=== PATIENT | female | born 1975 | race Caucasian/White ===

== ENCOUNTER 2018-01-19 07:21 | Outpatient (CLI) | payer BC ==
--- NOTE | 2018-01-19 14:14 | NM ---
NUCLEAR MEDICINE GASTRIC EMPTYING SCAN: Date: 01/19/18 HISTORY: 42-year-old female with nausea and vomiting, unspecified. TECHNIQUE: 2.1 mCi of technetium-99m sulfur colloid served in egg meal. Anterior scintigraphic images of the abdomen obtained immediately, at 30 minutes, at 1 hour, at 2 oscar rs, at 3 hours, and at 4 hours. FINDINGS: The percentage emptying is: 17% at 30 minutes 15% at 1 hour 69% at 2 hours 90% at 3 hours 98% at 4 hours Halftime of emptying is 97 minutes. IMPRESSION: Although the half-time of gastric emptying is slightly delayed, the rest of the values are within nor mal limits. POS: GABE
== END 2018-01-19 07:22 | disposition home or self-care (01) ==
LOC: NM 07:21
PROVIDERS: ATTEND Internal Medicine
DX: R11.2 Nausea with vomiting, unspecified (principal)
CPT/HCPCS: 78264; A9541

== ENCOUNTER 2018-12-14 08:04 | Outpatient (CLI) | payer BC | END 2018-12-14 08:05 | disposition home or self-care (01) | LOC: BICMAMMO 08:04 | PROVIDERS: ATTEND Internal Medicine | DX: Z12.31 Encounter for screening mammogram for malignant neoplasm of breast (principal); N64.89 Other specified disorders of breast | CPT/HCPCS: 77063; 77067 ==

== ENCOUNTER 2018-12-17 13:31 | Outpatient (CLI) | payer BC | END 2018-12-17 13:32 | disposition home or self-care (01) | LOC: BICULT 13:31 | PROVIDERS: ATTEND Internal Medicine | DX: R92.2 Inconclusive mammogram (principal); N64.89 Other specified disorders of breast | CPT/HCPCS: G0279 ==

== ENCOUNTER → 2021-04-22 | Day surgery (SDC) | payer BC | LOC: ENDO/OP 12:49 | PROVIDERS: ATTEND Surgery | DX: R11.10 Vomiting, unspecified (principal); R49.0 Dysphonia; K58.9 Irritable bowel syndrome, unspecified; D64.9 Anemia, unspecified; Z79.899 Other long term (current) drug therapy; Z87.891 Personal history of nicotine dependence; Z88.8 Allergy status to other drugs, medicaments and biological substances | CPT/HCPCS: 91010 ==